=== PATIENT | female | born 1950 | race Caucasian/White ===

== ENCOUNTER 2019-08-16 13:12 | Emergency (ER) | payer OTHER ==
[~2019-08-16] VITALS: Ht 162.6 cm; Wt 63.5 kg
[2019-08-16 13:28] VITALS: BP 148/66
--- NOTE | 2019-08-16 13:49 | NUR ---
69 YO FEMALW C/O RASH WHOLE BODY X 5 DAYS. SEEN BY PCP 3 DAYS AGO & GOT PERMETIN CREAM & BENADRYL. MED HX: HTN, HLD
[2019-08-16 15:04] VITALS: BP 148/66
--- NOTE | 2019-08-16 15:05 | NUR ---
Patient discharged with v/s stable. Written and verbal after care instructions given and explained. Patient alert, oriented and verbalized understanding of instructions. Ambulatory with steady gait. All questions addressed prior to discharge. ID band removed. Patient advised to follow up with PMD. Rx of PERMETHRIN given. Patient educated on indication of medication including possible reaction and side effects. Opportunity to ask questions provided and answered.
== END 2019-08-16 15:05 | disposition home or self-care (01) ==
LOC: MED 13:12
DX: B86 Scabies (principal); E78.5 Hyperlipidemia, unspecified; I10 Essential (primary) hypertension
CPT/HCPCS: 99283